=== PATIENT | male | born 1960 ===

== ENCOUNTER 2020-04-15 05:00 | Day surgery (SDC) | payer OTHER ==
[~2020-04-15 05:00] MED LIST: ATENOLOL25 GM MC; CARVEDILOL25 MG; DIOVAN320 MG PO; METFORMIN HCL1000 M1 PO; NORVASC10 MG PO
== END 2020-04-15 10:05 | disposition home or self-care (01) ==
LOC: CIR.AMB 05:00
PROVIDERS: ATTEND Surgery Surgery of the Hand
DX: M65.842 Other synovitis and tenosynovitis, left hand (principal); D21.12 Benign neoplasm of connective and other soft tissue of left upper limb, including shoulder; Z20.828 Contact with and (suspected) exposure to other viral communicable diseases